=== PATIENT | male | born 1965 | race Caucasian/White ===

== ENCOUNTER 2017-02-20 16:53 | Emergency (ER) | payer SELFPAY ==
--- NOTE | 2017-02-20 18:46 | ED.PDOC ---
History of Present Illness - General Chief Complaint: General Stated Complaint: R ankle infection/pain Time Seen by Provider: 02/20/17 18:43 Source: patient, RN notes reviewed, Vital Signs reviewed Exam Limitations: no limitations - History of Present Illness Initial Comments: Patient here with a chronic R ankle infection. ~3 years ago he had an ORIF of an ankle fracture. At some point after the surgery a screw popped through the skin and he just took it out himself. Since then he has had a chronic infection , >3 yrs, that is not resolving with repeat courses of Bactrim. Today the infection is still present and he is complaining of severe pain despite sleeping in the ER. Timing/Duration: constant - X >3 years Severity: moderate Improving Factors: medication Worsening Factors: movement Associated Symptoms: denies symptoms Allergies/Adverse Reactions: Allergies Haloperidol [From Haldol] Allergy (Verified 02/20/17 19:47) Home Medications: Ambulatory Orders Doxycycline Hyclate 100 mg PO BID #28 tab 02/20/17 Review of Systems - Review of Systems Constitutional: States: no symptoms reported. Denies: chills, fever, malaise Respiratory: States: no symptoms reported Cardiology: States: no symptoms reported Musculoskeletal: States: see HPI, joint pain - R lateral ankle Skin: States: see HPI, other - redness, tenderness and drainage over R lateral ankle All other Systems: No Change from Baseline Family Medical History - Family History Father Family History: No Known Physical Exam - Physical Exam General Appearance: Agitated, Alert, Comfortable, No apparent distress, Unkempt , Well Developed, Well Hydrated, Well Nourished Respiratory: no respiratory distress, no accessory muscle use Extremity: inflammation - R lateral ankle with erythema, warmth, tenderness and purulent drainage from central wound., swelling Neurologic: alert, normal mood/affect, oriented x 3 Skin Exam: normal color, warm/dry Progress - EKG/XRAY/CT CT Ordered: Yes - Ankle: limited due to scatter but no obvious osteomyelitis per Rad Departure - Departure Clinical Impression: Cellulitis of right ankle Time of Disposition: 20:38 Disposition: Discharge to Home or Self Care Condition: Good Departure Forms: ED Discharge - Pt. Copy, Patient Portal Self Enrollment Instructions: DI for Cellulitis -- Adult Diet: resume usual diet Activity: increase activity as tolerated Referrals: Brad Monroy MD [Active Staff] - 1-5 Days Prescriptions: Doxycycline Hyclate 100 mg PO BID #28 tab Home Medications: Ambulatory Orders Doxycycline Hyclate 100 mg PO BID #28 tab 02/20/17
[2017-02-20] MEDS ORDERED: HYDROcodone 5MG/APAP 325MG 1 EA TAB PO ONE (20:20)
--- NOTE | 2017-02-20 20:34 | CT ---
EXAM DESCRIPTION: Lower Extremity CLINICAL HISTORY: 51 years Male, LEFT ankle pain and swelling along the lateral aspect of the ankle. No acute injury. chronic ankle infection, ? osteomyelitis COMPARISON: None. TECHNIQUE: 3.75 mm axial images through the LEFT ankle were performed in the absence of intravenous and oral contrast. Coronal and sagittal reconstructions were obtained. This exam was performed according to our departmental dose-optimization program which includes use of Automated Exposure Control, adjustment of the mA and/or kV according to patient size and/or use of iterative reconstruction technique. FINDINGS: There has been previous open reduction and internal fixation of the LEFT ankle with a lateral plate and screws passing along the distal LEFT fibula. There is also a linear area of bone loss suggesting a syndesmotic screw passing from the fibula and tibia. The screw is no longer present. Some bony erosion adjacent to the screw track is noted within the distal RIGHT fibula. No fracture. Soft tissue swelling overlies the lateral aspect of the ankle. No loculated fluid collection is seen. Evaluation of the soft tissues is limited secondary to scatter artifact from metallic hardware. There is some soft tissue opacity caudal to the hardware and caudal to the lateral malleolus extending to the skin surface. Visible musculature and tendons are grossly intact. The ankle mortise is congruent. An elongated but small ossific fragment lies along the anterior aspect of the tibiotalar joint. No suspicious calcification. IMPRESSION: Postoperative changes at the LEFT ankle. Evidence of old trauma. There is some soft tissue opacity lateral and caudal to the postoperative lateral malleolus and some overlying soft tissue swelling but findings are nonspecific. Limited evaluation for osteomyelitis given scatter artifact from the regional hardware. No loculated fluid collection is seen. No acute fracture. The ankle mortise is congruent. Small but elongated ossification along the anterior aspect of the ankle joint likely related to this patient's remote trauma. Electronically signed by: Paula Napier MD 02/20/2017 8:33 PM CDT Workstation: [id number]
[2017-02-20] MEDS ORDERED: DOXYCYCLINE TAB (ER DISPENSE) 100 MG CAP PO ONE (20:37)
[2017-02-20] MEDS ORDERED: cefTRIAXone SODIUM 1 GM VIAL IM ONE (20:46)
[2017-02-20] MEDS ORDERED: LIDOCAINE 1% 10 ML VIAL INJ ONE (21:02)
[2017-02-20 21:15] VITALS: BP 130/79; TEMP 98; O2SAT 97
== END 2017-02-20 21:15 | disposition home or self-care (01) ==
LOC: ER 16:53
DX: L03.115 Cellulitis of right lower limb (principal); Z98.890 Other specified postprocedural states; Z88.8 Allergy status to other drugs, medicaments and biological substances
CPT/HCPCS: 73700; J0696

== ENCOUNTER 2017-03-14 09:20 | Emergency (ER) | payer SELFPAY ==
[2017-03-14] MEDS ORDERED: cloNIDine HCL 0.1 MG TAB PO ONE (09:43)
--- NOTE | 2017-03-14 09:43 | ED.PDOC ---
History of Present Illness - General Chief Complaint: Lower Extremity Injury Stated Complaint: right ankle pain Time Seen by Provider: 03/14/17 09:41 Source: patient Exam Limitations: no limitations - History of Present Illness Initial Comments: Luc Ryan 51 y/o male with history of orif right ankle 3 years ago due to accident done by Dr. 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.Also has high blood pressure but does not take medicine regularly.Had right ankle CT-02/20/2017:soft tissue swelling,no loculated fluid collection seen Occurred: other - 3 years ago Pain - Lower Extremity: mild: Right Ankle Method of Injury: twisted, other - accident Improving Factors: immobilization Worsening Factors: movement Allergies/Adverse Reactions: Allergies Haloperidol [From Haldol] Allergy (Verified 02/20/17 19:47) Home Medications: Ambulatory Orders Doxycycline Hyclate 100 mg PO BID #28 tab 02/20/17 Ciprofloxacin [Cipro] 500 mg PO BID #20 tab 03/14/17 Metoprolol Tartrate [Lopressor] 100 mg PO BID #60 tab 03/14/17 Tramadol HCl 50 mg PO TID #20 tab 03/14/17 Review of Systems - Review of Systems Constitutional: States: no symptoms reported EENTM: States: no symptoms reported Respiratory: States: no symptoms reported Cardiology: States: no symptoms reported Gastrointestinal/Abdominal: States: no symptoms reported Musculoskeletal: States: no symptoms reported Skin: States: see HPI Neurological: States: no symptoms reported Endocrine: States: no symptoms reported Hematologic/Lymphatic: States: no symptoms reported Past Medical History (General) - Patient Medical History Hx Stroke: No Hx Congestive Heart Failure: No Hx Hypertension: Yes Hx Diabetes: Yes Hx Renal Disease: No - Kidney stones Surgical History: other - orif right ankle - Vaccination History Hx Tetanus, Diphtheria Vaccination: Yes Hx Influenza Vaccination: No Hx Pneumococcal Vaccination: Yes - Social History Hx Tobacco Use: No Family Medical History - Family History Father Family History: No Known Physical Exam - Physical Exam General Appearance: Alert, Comfortable, No apparent distress Eyes, Ears, Nose, Throat: PERRL/EOMI, normal ENT inspection, TMs normal Neck: non-tender, full range of motion, supple Cardiovascular/Respiratory: regular rate, rhythm, no M/R/G, normal breath sounds , no respiratory distress Gastrointestinal/Abdominal: non-tender, no organomegaly Back: normal inspection, no CVA tenderness, no vertebral tenderness Thigh/Hip: normal inspection, non-tender, no evidence of injury Leg: normal inspection, non-tender, no evidence of injury Knee: normal inspection, non-tender, no evidence of injury Ankle: deformity - skin with small non healing wound area of surgical incision right ankle, soft tissue tenderness - skin Foot: normal inspection, non-tender, no evidence of injury Neuro/Tendon: normal sensation, normal motor functions, no evidence tendon injury Mental Status: alert, oriented x 3 Skin: normal color, warm/dry Departure - Departure Clinical Impression: History of orthopedic surgery Non-healing surgical wound Qualifiers: Encounter type: initial encounter Qualified Code(s): T81.89XA - Other complications of procedures, not elsewhere classified, initial encounter Hypertension Qualifiers: Hypertension type: essential hypertension Qualified Code(s): I10 - Essential ( primary) hypertension Time of Disposition: 10:55 Disposition: Discharge to Home or Self Care Condition: Fair Departure Forms: ED Discharge - Pt. Copy, Patient Portal Self Enrollment Prescriptions: Ciprofloxacin [Cipro] 500 mg PO BID #20 tab Metoprolol Tartrate [Lopressor] 100 mg PO BID #60 tab Tramadol HCl 50 mg PO TID #20 tab Home Medications: Ambulatory Orders Doxycycline Hyclate 100 mg PO BID #28 tab 02/20/17 Ciprofloxacin [Cipro] 500 mg PO BID #20 tab 03/14/17 Metoprolol Tartrate [Lopressor] 100 mg PO BID #60 tab 03/14/17 Tramadol HCl 50 mg PO TID #20 tab 03/14/17 Additional Instructions: Follow up with Dr. Pacheco orthopedist-call for appointment
[2017-03-14 09:44] VITALS: TEMP 99
[2017-03-14] MEDS ORDERED: levoFLOXacin 500 MG TAB PO ONE (10:01)
[2017-03-14] MEDS ORDERED: NEOMYCIN-BACITRACIN-POLYMYXIN 0.9 GM UD TOP ONE (10:12)
[2017-03-14 11:27] VITALS: BP 180/115; O2SAT 99
== END 2017-03-14 11:27 | disposition home or self-care (01) ==
LOC: ER 09:20
DX: T81.89XA Other complications of procedures, not elsewhere classified, initial encounter (principal); M25.571 Pain in right ankle and joints of right foot; I10 Essential (primary) hypertension; E11.9 Type 2 diabetes mellitus without complications; Z88.8 Allergy status to other drugs, medicaments and biological substances; Z79.899 Other long term (current) drug therapy